=== PATIENT | female | born 1965 | race Hispanic/Latino ===

== ENCOUNTER → 2024-04-08 11:38 | Outpatient (REF) | payer OTHER, SELFPAY | LOC: RAD 11:38 | PROVIDERS: ATTENDING PHYSICIAN Surgery; FAMILY PHYSICIAN Family Medicine | DX: C18.7 Malignant neoplasm of sigmoid colon (principal) | CPT/HCPCS: 71260; 74177; Q9967 ==

== ENCOUNTER → 2024-04-10 15:57 | Outpatient (REF) | payer SELFPAY | LOC: CLAB 15:57 | PROVIDERS: ATTENDING PHYSICIAN Surgery; FAMILY PHYSICIAN Family Medicine | DX: C18.7 Malignant neoplasm of sigmoid colon (principal) | CPT/HCPCS: 88305 ==

== ENCOUNTER 2024-04-14 06:03 | Inpatient (IN) | payer OTHER, SELFPAY ==
[2024-04-08 09:35] VITALS: BMI 23.7
[2024-04-08 10:47] LABS: Hematocrit 34.6 % (37.0-47.0); Hemoglobin 11.1 g/dL (12.0-16.0); Mean Corp Hgb Conc. 32.1 g/dL (33.0-37.0); Mean Corpuscular Hgb 25.3 pg (27.0-31.0); Mean Platelet Volume 10.7 fL (7.4-10.4); Platelet Count 307 10^3/uL (130-400); Red Blood Cell Count 4.38 10^6/uL (4.20-5.40); Red Cell Dist. Width 17.7 % (11.5-14.5); White Blood Cell Count 5.5 10^3/uL (4.8-10.8)
[2024-04-08 10:56] LABS: PT 13.2 Sec (11.4-14.6)
[2024-04-08 10:57] LABS: APTT 32.8 Sec (23.4-35.0)
[2024-04-08 12:35] LABS: ALT (SGPT) 19 U/L (0-35); AST (SGOT) 25 U/L (14-36); Albumin 4.3 g/dl (3.5-5.0); Alkaline Phosphatase 77 U/L (38-126); Blood Urea Nitrogen 6 mg/dl (7-17); Calcium 9.6 mg/dl (8.4-10.2); Carbon Dioxide 24 mmol/L (22-30); Chloride 101 mmol/L (98-107); Estimated Creatinine Clearance 89 ml/min; Glucose 83 mg/dl (70-99); Glycohemoglobin (HgbA1c) 5.2 % (4.0-5.6); Potassium 4.2 mmol/L (3.5-5.1); Sodium 140 mmol/L (135-145); Total Bilirubin 0.2 mg/dl (0.2-1.3); Total Protein 6.8 g/dl (6.3-8.2); eGFR > 60.00
[2024-04-08 13:00] LABS: CEA 3.67 ng/ml
[2024-04-14] VITALS (24 sets, daily range): BP systolic 81–134; BP diastolic 45–79; BMI 23.7
[2024-04-14] MEDS: ENTEREG 12 MG PO (06:31)
[2024-04-14] MEDS: HEPARIN 5000 UNITS SC (06:31)
[2024-04-14] MEDS: TYLENOL 1000 MG PO (06:31)
[2024-04-14] MEDS: NORMOSOL-R/PLASMALYTE-A 1000 IV ×2 (06:33→14:55)
--- NOTE | 2024-04-14 11:35 | W.OR.COLCA ---
Addendum entered and electronically signed by Jose Luis Chery MD 04/14/24 11:47:
Isabela Friedman PA-C, assisted in the anastomosis.
Original Note:
Colon Cancer Post Op Note
Immediate Post Op
Primary Surgeon: Chad Chery MD
Assistants: SKIP Wylie & ESME Spaulding
Pre-op Diagnosis: Sigmoid colon cancer
Post-op Diagnosis: Same
Procedure Performed: Robotic sigmoid colon resection with intracorporeal anastomosis
Anesthesia Type: GET
Specimen / Cultures: Sigmoid colon (suture is proximal)
Estimated Blood Loss: 20cc
Complications: None
Operative Findings: No evidence of metastatic disease
Bulky tumor in the sigmoid colon (ink above and below)
28mm EEA
Normal leak test
Patient's updated
Colon Resection
Colon Resection
Operation performed with curative intent: Yes
Tumor Location: Sigmoid Colon
Sigmoid Resection: Inferior Mesenteric
[2024-04-14] MEDS: TORADOL 15 MG IV ×2 (11:57→17:21)
[2024-04-14] MEDS: TYLENOL 650 MG PO ×2 (12:47→20:53)
[2024-04-14] MEDS: NSS 250 IV (14:00)
--- NOTE | 2024-04-14 14:55 | PTCARENOTE ---
Patient arrived from PACU s/p sigmoid colon resection. 5 Lap Sites STEWARD/STEWARDESS DINING ROOM, surgical adhesive CDI. Small/minimal bruising, no drainage, no erythema.
Patient pleasant, cooperative. R Hand IV hooked up to Normosol at 100 mL/hour by REFRIGERATOR GLAZIER.
[2024-04-14] MEDS: TYLENOL PO (16:20)
[2024-04-15] MEDS: TORADOL 15 MG IV ×4 (00:17→17:10)
[2024-04-15] MEDS: TYLENOL 650 MG PO ×5 (00:17→23:34)
[2024-04-15] MEDS: FLUSH (NSS) 2 FLUSH IV ×2 (00:19→06:13)
[2024-04-15] MEDS: NORMOSOL-R/PLASMALYTE-A 1000 IV ×3 (00:56→17:11)
[2024-04-15 03:21] VITALS: BP 99/58
[2024-04-15] MEDS: TYLENOL PO ×2 (05:00→16:55)
[2024-04-15 06:00] VITALS: BMI 24.6
[2024-04-15 06:26] LABS: % Basophils 0.1 % (0-2); % Immature Granulocytes 0.5 % (0-0.5); % Lymphocytes 11.9 % (20.5-51.1); % Monocytes 6.5 % (1.7-9.3); Absolute Immature Granulocytes 0.1 10^3/uL (0-0.05); Absolute Lymphocytes 1.3 10^3/uL (1.2-3.4); Absolute Monocytes 0.7 10^3/uL (0.1-0.6); Absolute Neutrophils 8.8 10^3/uL (1.4-6.5); Hematocrit 28.6 % (37.0-47.0); Hemoglobin 9.2 g/dL (12.0-16.0); Mean Corp Hgb Conc. 32.2 g/dL (33.0-37.0); Mean Corpuscular Hgb 25.7 pg (27.0-31.0); Mean Corpuscular Volume 79.9 fL (81.0-99.0); Mean Platelet Volume 11.1 fL (7.4-10.4); Nucleated Red Blood Cells % 0 %; Platelet Count 265 10^3/uL (130-400); Red Blood Cell Count 3.58 10^6/uL (4.20-5.40); Red Cell Dist. Width 17.8 % (11.5-14.5); White Blood Cell Count 10.8 10^3/uL (4.8-10.8)
[2024-04-15 06:49] LABS: Blood Urea Nitrogen 3 mg/dl (7-17); Calcium 8.7 mg/dl (8.4-10.2); Carbon Dioxide 21 mmol/L (22-30); Chloride 104 mmol/L (98-107); Estimated Creatinine Clearance 89 ml/min; Glucose 98 mg/dl (70-99); Potassium 4.1 mmol/L (3.5-5.1); Sodium 138 mmol/L (135-145); eGFR > 60.00
[2024-04-15 07:55] VITALS: BP 102/55
[2024-04-15] MEDS: ENTEREG 12 MG PO ×2 (08:14→20:40)
--- NOTE | 2024-04-15 09:37 | W.PN.CRS1 ---
Today's Communication / Plan
-
fulls
d/c charles
lovenox
Assessment/Plan
-
POD#1 robotic sigmoidectomy for colon cancer
-Vitals normal. Hemoglobin 9.5 from 11.1. Likely due to delusional anemia. Trend.
-Out of bed as tolerated
-Advance diet to full's. If has bowel function can go to low residue.
-Lovenox for DVT prophylaxis. Teds and SCDs in place.
-DC Charles
-Discontinue IV fluids when tolerating fulls.
-OR pathology pending
-Pain control: Tylenol and Toradol standing, Dilaudid as needed
Subjective Data
Procedure
04/14 - Robotic sigmoid colon resection with intracorporeal anastomosis
Subjective Data
Date of Service: April 15, 2024
Patient states she feels well. She virtually has no pain. She has not had any bowel function yet. She denies nausea or vomiting.
Objective Data
-
Vital Signs
Temp Pulse Resp BP Pulse Ox
98.5 F 56 16 102/55 100
04/15/24 07:55 04/15/24 07:55 04/15/24 07:55 04/15/24 07:55 04/15/24 07:55
Intake & Output
04/14/24 04/15/24 04/16/24
06:59 06:59 06:59
Intake Total 2690 / 2690
Output Total 1999
Balance 690 / 690
Intake:
Oral fluids 240 / 240
IV fluids (Total) 2450 / 2450
NSS 1250 / 1250
Output:
Urine, Charles 1999
Lab Results
04/15/24 05:02
04/15/24 05:02
Physical Exam
-
General: No Acute Distress and AOx3
Abdomen: Soft, Non Distended and Tender (mild around umbilicus)
Skin: Warm and Dry
Incision: Clear, Dry, Intact
--- NOTE | 2024-04-15 11:02 | CM ---
Met with pt and her at bedside
Pt reports she lives in a 2 story town home with her , 2 sons and her mother; no steps to enter, 13 steps to 2nd fl
Independent, employed FT, drives
DME - none
SNF/HH - no past hx
Has ride at discharge
PCP - Janice Sanders
Pharm - [facility]
Plan - anticipate home no needs when medically ready
[2024-04-15 11:10] VITALS: BP 112/59
[2024-04-15 15:05] VITALS: BP 130/69
[2024-04-15] MEDS: LOVENOX 40 MG SC (17:11)
[2024-04-15] MEDS: TORADOL IV ×2 (23:34→23:40)
[2024-04-15 23:40] VITALS: BP 98/56
[2024-04-16] MEDS: TYLENOL 650 MG PO ×4 (03:04→20:32)
[2024-04-16 05:14] VITALS: BMI 24.4
[2024-04-16 05:53] LABS: % Basophils 0.4 % (0-2); % Eosinophils 0.1 % (0-6); % Immature Granulocytes 0.3 % (0-0.5); % Lymphocytes 22.6 % (20.5-51.1); % Monocytes 6.6 % (1.7-9.3); Absolute Lymphocytes 2.1 10^3/uL (1.2-3.4); Absolute Monocytes 0.6 10^3/uL (0.1-0.6); Absolute Neutrophils 6.5 10^3/uL (1.4-6.5); Hematocrit 28.6 % (37.0-47.0); Hemoglobin 9.3 g/dL (12.0-16.0); Mean Corp Hgb Conc. 32.5 g/dL (33.0-37.0); Mean Corpuscular Hgb 26.4 pg (27.0-31.0); Mean Corpuscular Volume 81.3 fL (81.0-99.0); Nucleated Red Blood Cells % 0 %; Platelet Count 251 10^3/uL (130-400); Red Blood Cell Count 3.52 10^6/uL (4.20-5.40); Red Cell Dist. Width 18.2 % (11.5-14.5); White Blood Cell Count 9.4 10^3/uL (4.8-10.8)
[2024-04-16 06:33] LABS: Blood Urea Nitrogen 4 mg/dl (7-17); Calcium 8.5 mg/dl (8.4-10.2); Carbon Dioxide 25 mmol/L (22-30); Chloride 106 mmol/L (98-107); Estimated Creatinine Clearance 89 ml/min; Glucose 92 mg/dl (70-99); Potassium 3.5 mmol/L (3.5-5.1); Sodium 140 mmol/L (135-145); eGFR > 60.00
[2024-04-16] MEDS: TORADOL IV ×2 (07:15→23:43)
[2024-04-16 07:58] VITALS: BP 110/64
[2024-04-16] MEDS: ZOFRAN 4 MG IV ×2 (08:56→16:10)
[2024-04-16] MEDS: ENTEREG 12 MG PO ×2 (08:57→20:32)
--- NOTE | 2024-04-16 10:56 | W.PN.CRS1 ---
Today's Communication / Plan
-
back down to clears
ivfs
Assessment/Plan
-
POD#2 robotic sigmoidectomy for colon cancer
-Vitals normal. Hemoglobin 9.3 from 9.5. Likely due to dilutional anemia. Trend.
-Out of bed as tolerated
-Back diet down to clears. Add IVFs.
-Lovenox for DVT prophylaxis. Teds and SCDs in place.
-OR pathology pending
-Pain control: Tylenol and Toradol standing, Dilaudid as needed
-Monitor rectal bleeding. Expected post op.
Subjective Data
Procedure
04/14 - Robotic sigmoid colon resection with intracorporeal anastomosis
Subjective Data
Date of Service: April 16, 2024
Patient states she had some nausea today. She denies vomiting. She had some liquid diarrhea with blood in her stool 3 times overnight. She feels little bloated and has some abdominal pain. Nausea is mostly from eating. She was urinating without
difficulty.
Objective Data
-
Vital Signs
Temp Pulse Resp BP Pulse Ox
98.8 F 62 18 110/64 99
04/16/24 07:58 04/16/24 07:58 04/16/24 07:58 04/16/24 07:58 04/16/24 07:58
Intake & Output
04/15/24 04/16/24 04/17/24
06:59 06:59 06:59
Intake Total 2690 / 2690 1480 / 1480
Output Total 1999 1100 / 1100
Balance 690 / 690 380 / 380
Intake:
Oral fluids 240 / 240 680 / 680
IV fluids (Total) 2450 / 2450 800 / 800
NSS 1250 / 1250
Output:
Urine, Johnson 1999 1100 / 1100
Other:
Number of approximated MODERATE 2
amounts of urine
Lab Results
04/16/24 04:43
04/16/24 04:43
Physical Exam
-
General: No Acute Distress and AOx3
Abdomen: Soft, Distended (slightly) and Tender (mild around incisions)
Incision: Clear, Dry, Intact
--- NOTE | 2024-04-16 11:22 | CM ---
Case management following for discharge planning
Chart reviewed
Clear liquids
IV fluids added
Pain management
CM will cont to follow for d/c needs
Plan - anticipate home no needs when medically ready
[2024-04-16] MEDS: NORMOSOL-R/PLASMALYTE-A 1000 IV ×2 (11:46→21:34)
[2024-04-16] MEDS: TORADOL 15 MG IV ×2 (12:22→17:18)
[2024-04-16 15:19] VITALS: BP 112/66
[2024-04-16] MEDS: TYLENOL PO ×2 (16:11→23:43)
[2024-04-16] MEDS: LOVENOX 40 MG SC (17:18)
[2024-04-16] MEDS: COMPAZINE 10 MG IV (20:33)
[2024-04-16 23:00] VITALS: BP 134/74
[2024-04-17] MEDS: TYLENOL PO (04:17)
[2024-04-17] MEDS: TORADOL 15 MG IV ×2 (04:43→12:20)
[2024-04-17 06:05] LABS: % Basophils 0.7 % (0-2); % Eosinophils 0.8 % (0-6); % Immature Granulocytes 0.3 % (0-0.5); % Lymphocytes 26.7 % (20.5-51.1); % Monocytes 7.2 % (1.7-9.3); % Neutrophils 64.3 % (42.2-75.2); Absolute Basophils 0.1 10^3/uL (0-0.2); Absolute Eosinophils 0.1 10^3/uL (0-0.7); Absolute Lymphocytes 1.9 10^3/uL (1.2-3.4); Absolute Monocytes 0.5 10^3/uL (0.1-0.6); Absolute Neutrophils 4.6 10^3/uL (1.4-6.5); Hematocrit 29.2 % (37.0-47.0); Hemoglobin 9.6 g/dL (12.0-16.0); Mean Corp Hgb Conc. 32.9 g/dL (33.0-37.0); Mean Corpuscular Hgb 27.1 pg (27.0-31.0); Mean Corpuscular Volume 82.5 fL (81.0-99.0); Nucleated Red Blood Cells % 0 %; Platelet Count 253 10^3/uL (130-400); Red Blood Cell Count 3.54 10^6/uL (4.20-5.40); White Blood Cell Count 7.2 10^3/uL (4.8-10.8)
[2024-04-17 06:40] LABS: Blood Urea Nitrogen 5 mg/dl (7-17); Calcium 8.7 mg/dl (8.4-10.2); Carbon Dioxide 19 mmol/L (22-30); Chloride 105 mmol/L (98-107); Estimated Creatinine Clearance 89 ml/min; Glucose 69 mg/dl (70-99); Potassium 3.7 mmol/L (3.5-5.1); Sodium 141 mmol/L (135-145); eGFR > 60.00
[2024-04-17] MEDS: NORMOSOL-R/PLASMALYTE-A 1000 IV (07:03)
[2024-04-17 07:05] VITALS: BP 118/78
[2024-04-17] MEDS: ENTEREG 12 MG PO (08:41)
[2024-04-17] MEDS: TYLENOL 650 MG PO ×3 (08:41→16:09)
--- NOTE | 2024-04-17 10:46 | W.PN.CRS1 ---
Today's Communication / Plan
-
low residue
possible d/c later today
Assessment/Plan
-
POD#3 robotic sigmoidectomy for colon cancer
-Vitals normal.
-Out of bed as tolerated
-Restart low residue diet.
-D/C IVFs when tolerating low residue.
-Lovenox for DVT prophylaxis. Teds and SCDs in place.
-OR pathology pending
-Pain control: Tylenol and Toradol standing, Dilaudid as needed
-Okay for d/c later today if tolerates a low residue diet.
Subjective Data
Procedure
04/14 - Robotic sigmoid colon resection with intracorporeal anastomosis
Subjective Data
Date of Service: April 17, 2024
Patient states she is feeling much better. She was nauseous yesterday but improved. She has bowel function. She denies vomiting.
Objective Data
-
Vital Signs
Temp Pulse Resp BP Pulse Ox
98.2 F 76 16 118/78 98
04/17/24 07:05 04/17/24 07:05 04/17/24 07:05 04/17/24 07:05 04/17/24 07:05
Intake & Output
04/16/24 04/17/24 04/18/24
06:59 06:59 06:59
Intake Total 1480 / 1480 2380 / 2380
Output Total 1100 / 1100
Balance 380 / 380 2380 / 2380
Intake:
Oral fluids 680 / 680 480 / 480
IV fluids (Total) 800 / 800 1900 / 1900
Output:
Urine, Johnson 1100 / 1100
Other:
Number of approximated MODERATE 2 3
amounts of urine
Lab Results
04/17/24 04:37
04/17/24 04:37
Physical Exam
-
General: No Acute Distress and AOx3
Abdomen: Soft, Non Distended and Non Tender
Skin: Warm and Dry
--- NOTE | 2024-04-17 13:50 | W.DS.TRANS ---
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
-
Discharge Instructions:
Sleep Apnea Risk Low
Discharge Diagnosis/Procedures Robotic sigmoid colon resection with
intracorporeal anastomosis
Diet Low Residue
Activity No strenuous activity
Additional Activity No lifting over 10lbs (gallon of milk)
Driving Restrictions No driving for 1 week
Bathing Restrictions OK to Shower
Wound Care Allow glue to naturally fall off, do not pick at
incision.
Instructions: Low Fiber Diet
Stand-Alone Forms:
Changes to Home Medications: Yes
Discharge Medications:
DC Medications w/original date entered in [employer]
ascorbic acid (vitamin C) 1,000 mg tablet (Vitamin C) 1,000 mg PO DAILY Supplement 04/09/24
cholecalciferol (vitamin D3) 50 mcg (2,000 unit) capsule (Vitamin D3) 50 mcg PO DAILY Supplement 04/09/24
oxycodone 5 mg tablet 5 mg PO Q6H PRN Pain #20 tabs 04/17/24
Home Medication Changes
oxycodone 5 mg tablet 5 mg PO Q6H PRN Pain #20 tabs 04/17/24
Pending Results: Yes
Additional Pending Results:
pathology
--- NOTE | 2024-04-17 14:39 | CM ---
Pt for possible discharge today if tolerating diet
will transport home
Plan - anticipate home no needs
[2024-04-17 15:33] VITALS: BP 113/73
[2024-04-17] MEDS: AFLURIA (36 mos+) 2024-2025 FORMULA 0.5 ML IM (16:08)
== END 2024-04-17 17:05 | disposition home or self-care (01) | DRG 330 ==
LOC: 2 SOUTH 06:03
PROVIDERS: Physician Assistant; ADMITTING PHYSICIAN Surgery; FAMILY PHYSICIAN Family Medicine
PROC: 0DTN8ZZ Resection of Sigmoid Colon, Via Natural or Artificial Opening Endoscopic (ICD-10-PCS; 2024-04-14)
DX: C18.7 Malignant neoplasm of sigmoid colon (principal); D62 Acute posthemorrhagic anemia
CPT/HCPCS: 88309; 36415; 80048; 80053; 82378; 83036; 85025; 85027; 85610; 85730; 86850; 86900; 86901; 93005; J1335

== ENCOUNTER 2024-05-13 06:51 | Day surgery (SDC) | payer OTHER, SELFPAY ==
[2024-05-13 11:03] VITALS: BMI 23.4
[2024-05-13 11:04] VITALS: BP 112/69
[2024-05-13] MEDS: TYLENOL 1000 MG PO (11:17)
[2024-05-13 13:05] VITALS: BP 116/57
[2024-05-13 13:20] VITALS: BP 123/65
[2024-05-13 13:45] VITALS: BP 121/64
== END 2024-05-13 14:00 | disposition home or self-care (01) ==
LOC: SDS 06:51
PROVIDERS: ATTENDING PHYSICIAN Surgery
DX: C18.7 Malignant neoplasm of sigmoid colon (principal)
CPT/HCPCS: 36561; 71045; 76000; C1788

== ENCOUNTER → 2024-07-02 13:36 | Outpatient (REF) | payer OTHER, SELFPAY | LOC: RADI 13:36 | PROVIDERS: ATTENDING PHYSICIAN Internal Medicine Hematology & Oncology; FAMILY PHYSICIAN Family Medicine | DX: T82.524A Displacement of infusion catheter, initial encounter (principal); Y82.8 Other medical devices associated with adverse incidents; C18.7 Malignant neoplasm of sigmoid colon | CPT/HCPCS: 36598 ==

== ENCOUNTER → 2024-07-06 14:07 | Outpatient (REF) | payer OTHER, SELFPAY ==
[2024-07-06 15:09] LABS: Hematocrit 36.3 % (37.0-47.0); Mean Corp Hgb Conc. 33.1 g/dL (33.0-37.0); Mean Corpuscular Hgb 29.5 pg (27.0-31.0); Mean Corpuscular Volume 89.2 fL (81.0-99.0); Platelet Count 157 10^3/uL (130-400); Red Blood Cell Count 4.07 10^6/uL (4.20-5.40); Red Cell Dist. Width 21.3 % (11.5-14.5); White Blood Cell Count 4.3 10^3/uL (4.8-10.8)
[2024-07-06 15:16] LABS: ALT (SGPT) 58 U/L (0-35); AST (SGOT) 54 U/L (14-36); Albumin 4.2 g/dl (3.5-5.0); Alkaline Phosphatase 98 U/L (38-126); Blood Urea Nitrogen 17 mg/dl (7-17); Calcium 9.2 mg/dl (8.4-10.2); Carbon Dioxide 27 mmol/L (22-30); Chloride 102 mmol/L (98-107); Glucose 84 mg/dl (70-99); Sodium 138 mmol/L (135-145); Total Bilirubin 0.3 mg/dl (0.2-1.3); Total Protein 6.5 g/dl (6.3-8.2); eGFR > 60.00
[2024-07-06 15:19] LABS: Potassium 4.1 mmol/L (3.5-5.1)
[2024-07-06 16:33] LABS: % Basophils 1.2 % (0-2); % Eosinophils 1.2 % (0-6); % Lymphocytes 58.6 % (20.5-51.1); % Monocytes 14.8 % (1.7-9.3); % Neutrophils 24.2 % (42.2-75.2); Absolute Basophils 0.1 10^3/uL (0-0.2); Absolute Eosinophils 0.1 10^3/uL (0-0.7); Absolute Lymphocytes 2.5 10^3/uL (1.2-3.4); Absolute Monocytes 0.6 10^3/uL (0.1-0.6); Nucleated Red Blood Cells % 0 %
== END ==
LOC: REG 14:07
PROVIDERS: ATTENDING PHYSICIAN Internal Medicine Hematology & Oncology
DX: C18.7 Malignant neoplasm of sigmoid colon (principal); D50.9 Iron deficiency anemia, unspecified
CPT/HCPCS: 36415; 80053; 85025

== ENCOUNTER → 2024-07-25 11:22 | Outpatient (REF) | payer OTHER, SELFPAY ==
[2024-07-25 13:26] LABS: % Basophils 0.8 % (0-2); % Eosinophils 0.5 % (0-6); % Lymphocytes 38.6 % (20.5-51.1); % Monocytes 8.3 % (1.7-9.3); % Neutrophils 50.8 % (42.2-75.2); Absolute Basophils 0.1 10^3/uL (0-0.2); Absolute Immature Granulocytes 0.1 10^3/uL (0-0.05); Absolute Lymphocytes 3.4 10^3/uL (1.2-3.4); Absolute Monocytes 0.7 10^3/uL (0.1-0.6); Absolute Neutrophils 4.4 10^3/uL (1.4-6.5); Hematocrit 39.4 % (37.0-47.0); Mean Corpuscular Hgb 30.7 pg (27.0-31.0); Mean Corpuscular Volume 92.9 fL (81.0-99.0); Mean Platelet Volume 10.9 fL (7.4-10.4); Nucleated Red Blood Cells % 0 %; Platelet Count 212 10^3/uL (130-400); Red Blood Cell Count 4.24 10^6/uL (4.20-5.40); Red Cell Dist. Width 21.1 % (11.5-14.5); White Blood Cell Count 8.7 10^3/uL (4.8-10.8)
[2024-07-25 14:06] LABS: ALT (SGPT) 80 U/L (0-35); AST (SGOT) 60 U/L (14-36); Albumin 4.3 g/dl (3.5-5.0); Alkaline Phosphatase 122 U/L (38-126); Blood Urea Nitrogen 19 mg/dl (7-17); Calcium 9.3 mg/dl (8.4-10.2); Carbon Dioxide 30 mmol/L (22-30); Chloride 100 mmol/L (98-107); Glucose 87 mg/dl (70-99); Potassium 3.8 mmol/L (3.5-5.1); Sodium 140 mmol/L (135-145); Total Bilirubin 0.4 mg/dl (0.2-1.3); Total Protein 6.6 g/dl (6.3-8.2); eGFR > 60.00
== END ==
LOC: REG 11:22
PROVIDERS: ATTENDING PHYSICIAN Internal Medicine Hematology & Oncology; FAMILY PHYSICIAN Family Medicine
DX: C18.7 Malignant neoplasm of sigmoid colon (principal); D50.9 Iron deficiency anemia, unspecified
CPT/HCPCS: 36415; 80053; 85025

== ENCOUNTER → 2024-08-10 07:17 | Outpatient (REF) | payer OTHER, SELFPAY ==
[2024-08-10 08:14] LABS: ALT (SGPT) 39 U/L (0-35); AST (SGOT) 40 U/L (14-36); Albumin 4.2 g/dl (3.5-5.0); Alkaline Phosphatase 162 U/L (38-126); Blood Urea Nitrogen 12 mg/dl (7-17); Calcium 9.5 mg/dl (8.4-10.2); Carbon Dioxide 31 mmol/L (22-30); Chloride 102 mmol/L (98-107); Glucose 90 mg/dl (70-99); Potassium 3.6 mmol/L (3.5-5.1); Sodium 140 mmol/L (135-145); Total Bilirubin 0.5 mg/dl (0.2-1.3); Total Protein 6.2 g/dl (6.3-8.2); eGFR > 60.00
[2024-08-10 08:45] LABS: Hematocrit 36.6 % (37.0-47.0); Hemoglobin 12.3 g/dL (12.0-16.0); Mean Corp Hgb Conc. 33.6 g/dL (33.0-37.0); Mean Corpuscular Hgb 31.4 pg (27.0-31.0); Mean Corpuscular Volume 93.4 fL (81.0-99.0); Mean Platelet Volume 10.3 fL (7.4-10.4); Platelet Count 184 10^3/uL (130-400); Red Blood Cell Count 3.92 10^6/uL (4.20-5.40); Red Cell Dist. Width 19.9 % (11.5-14.5); White Blood Cell Count 10.7 10^3/uL (4.8-10.8)
[2024-08-10 15:11] LABS: % Basophils 0.4 % (0-2); % Eosinophils 0.8 % (0-6); % Immature Granulocytes 2.3 % (0-0.5); % Lymphocytes 23.5 % (20.5-51.1); Absolute Eosinophils 0.1 10^3/uL (0-0.7); Absolute Immature Granulocytes 0.3 10^3/uL (0-0.05); Absolute Lymphocytes 2.5 10^3/uL (1.2-3.4); Absolute Monocytes 0.8 10^3/uL (0.1-0.6); Absolute Neutrophils 7.1 10^3/uL (1.4-6.5); Nucleated Red Blood Cells % 0 %
== END ==
LOC: REG 07:17
PROVIDERS: ATTENDING PHYSICIAN Internal Medicine Hematology & Oncology; FAMILY PHYSICIAN Family Medicine
DX: C18.7 Malignant neoplasm of sigmoid colon (principal); D50.9 Iron deficiency anemia, unspecified
CPT/HCPCS: 36415; 80053; 85025

== ENCOUNTER → 2024-08-24 07:40 | Outpatient (REF) | payer OTHER, SELFPAY ==
[2024-08-24 08:46] LABS: % Basophils 0.7 % (0-2); % Eosinophils 0.4 % (0-6); % Lymphocytes 26.3 % (20.5-51.1); % Monocytes 12.8 % (1.7-9.3); % Neutrophils 58.8 % (42.2-75.2); Absolute Basophils 0.1 10^3/uL (0-0.2); Absolute Immature Granulocytes 0.1 10^3/uL (0-0.05); Absolute Lymphocytes 1.8 10^3/uL (1.2-3.4); Absolute Monocytes 0.9 10^3/uL (0.1-0.6); Absolute Neutrophils 4.1 10^3/uL (1.4-6.5); Hematocrit 40.3 % (37.0-47.0); Hemoglobin 13.5 g/dL (12.0-16.0); Mean Corp Hgb Conc. 33.5 g/dL (33.0-37.0); Mean Corpuscular Hgb 32.7 pg (27.0-31.0); Mean Corpuscular Volume 97.6 fL (81.0-99.0); Nucleated Red Blood Cells % 0 %; Red Blood Cell Count 4.13 10^6/uL (4.20-5.40); Red Cell Dist. Width 18.6 % (11.5-14.5)
[2024-08-24 09:14] LABS: Mean Platelet Volume 11.6 fL (7.4-10.4); Platelet Count 99 10^3/uL (130-400)
[2024-08-24 09:15] LABS: ALT (SGPT) 63 U/L (0-35); AST (SGOT) 50 U/L (14-36); Albumin 4.4 g/dl (3.5-5.0); Alkaline Phosphatase 174 U/L (38-126); Blood Urea Nitrogen 17 mg/dl (7-17); Calcium 9.2 mg/dl (8.4-10.2); Carbon Dioxide 30 mmol/L (22-30); Chloride 103 mmol/L (98-107); Glucose 99 mg/dl (70-99); Potassium 3.5 mmol/L (3.5-5.1); Sodium 141 mmol/L (135-145); Total Bilirubin 0.6 mg/dl (0.2-1.3); Total Protein 6.5 g/dl (6.3-8.2); eGFR > 60.00
== END ==
LOC: REG 07:40
PROVIDERS: ATTENDING PHYSICIAN Internal Medicine Hematology & Oncology; FAMILY PHYSICIAN Family Medicine
DX: C18.7 Malignant neoplasm of sigmoid colon (principal); D50.9 Iron deficiency anemia, unspecified
CPT/HCPCS: 36415; 80053; 85025

== ENCOUNTER → 2024-08-31 07:18 | Outpatient (REF) | payer OTHER, SELFPAY ==
[2024-08-31 08:16] LABS: % Basophils 0.8 % (0-2); % Eosinophils 1.5 % (0-6); % Immature Granulocytes 0.9 % (0-0.5); % Lymphocytes 24.4 % (20.5-51.1); % Monocytes 8.1 % (1.7-9.3); % Neutrophils 64.3 % (42.2-75.2); Absolute Basophils 0.1 10^3/uL (0-0.2); Absolute Eosinophils 0.1 10^3/uL (0-0.7); Absolute Immature Granulocytes 0.1 10^3/uL (0-0.05); Absolute Lymphocytes 1.9 10^3/uL (1.2-3.4); Absolute Monocytes 0.6 10^3/uL (0.1-0.6); Hematocrit 37.5 % (37.0-47.0); Hemoglobin 12.9 g/dL (12.0-16.0); Mean Corp Hgb Conc. 34.4 g/dL (33.0-37.0); Mean Corpuscular Hgb 33.1 pg (27.0-31.0); Mean Corpuscular Volume 96.2 fL (81.0-99.0); Mean Platelet Volume 10.1 fL (7.4-10.4); Nucleated Red Blood Cells % 0 %; Platelet Count 168 10^3/uL (130-400); Red Cell Dist. Width 16.8 % (11.5-14.5); White Blood Cell Count 7.8 10^3/uL (4.8-10.8)
[2024-08-31 09:04] LABS: ALT (SGPT) 44 U/L (0-35); AST (SGOT) 34 U/L (14-36); Albumin 3.9 g/dl (3.5-5.0); Alkaline Phosphatase 137 U/L (38-126); Blood Urea Nitrogen 18 mg/dl (7-17); Calcium 9.2 mg/dl (8.4-10.2); Carbon Dioxide 27 mmol/L (22-30); Chloride 106 mmol/L (98-107); Glucose 97 mg/dl (70-99); Potassium 4.2 mmol/L (3.5-5.1); Sodium 141 mmol/L (135-145); Total Bilirubin 0.4 mg/dl (0.2-1.3); Total Protein 6.3 g/dl (6.3-8.2); eGFR > 60.00
== END ==
LOC: REG 07:18
PROVIDERS: ATTENDING PHYSICIAN Internal Medicine Hematology & Oncology; FAMILY PHYSICIAN Family Medicine
DX: C18.7 Malignant neoplasm of sigmoid colon (principal); D50.9 Iron deficiency anemia, unspecified
CPT/HCPCS: 36415; 80053; 85025

== ENCOUNTER → 2024-09-14 07:18 | Outpatient (REF) | payer OTHER, SELFPAY ==
[2024-09-14 07:58] LABS: % Basophils 1.1 % (0-2); % Eosinophils 0.9 % (0-6); % Immature Granulocytes 2.2 % (0-0.5); % Lymphocytes 23.7 % (20.5-51.1); % Monocytes 8.1 % (1.7-9.3); Absolute Basophils 0.1 10^3/uL (0-0.2); Absolute Eosinophils 0.1 10^3/uL (0-0.7); Absolute Immature Granulocytes 0.2 10^3/uL (0-0.05); Absolute Lymphocytes 2.2 10^3/uL (1.2-3.4); Absolute Monocytes 0.8 10^3/uL (0.1-0.6); Hematocrit 36.3 % (37.0-47.0); Hemoglobin 12.3 g/dL (12.0-16.0); Mean Corp Hgb Conc. 33.9 g/dL (33.0-37.0); Mean Corpuscular Hgb 33.1 pg (27.0-31.0); Mean Corpuscular Volume 97.6 fL (81.0-99.0); Mean Platelet Volume 10.3 fL (7.4-10.4); Nucleated Red Blood Cells % 0.2 %; Platelet Count 146 10^3/uL (130-400); Red Blood Cell Count 3.72 10^6/uL (4.20-5.40); Red Cell Dist. Width 14.6 % (11.5-14.5); White Blood Cell Count 9.4 10^3/uL (4.8-10.8)
[2024-09-14 08:48] LABS: ALT (SGPT) 32 U/L (0-35); AST (SGOT) 36 U/L (14-36); Albumin 4.3 g/dl (3.5-5.0); Alkaline Phosphatase 176 U/L (38-126); Blood Urea Nitrogen 12 mg/dl (7-17); Calcium 9.5 mg/dl (8.4-10.2); Carbon Dioxide 25 mmol/L (22-30); Chloride 105 mmol/L (98-107); Glucose 98 mg/dl (70-99); Potassium 3.8 mmol/L (3.5-5.1); Sodium 139 mmol/L (135-145); Total Bilirubin 0.6 mg/dl (0.2-1.3); Total Protein 6.4 g/dl (6.3-8.2); eGFR > 60.00
== END ==
LOC: REG 07:18
PROVIDERS: ATTENDING PHYSICIAN Internal Medicine Hematology & Oncology; FAMILY PHYSICIAN Family Medicine
DX: C18.7 Malignant neoplasm of sigmoid colon (principal); D50.9 Iron deficiency anemia, unspecified
CPT/HCPCS: 36415; 80053; 85025

== ENCOUNTER → 2024-09-28 08:05 | Outpatient (REF) | payer OTHER, SELFPAY ==
[2024-09-28 08:44] LABS: % Basophils 0.9 % (0-2); % Eosinophils 0.8 % (0-6); % Immature Granulocytes 1.3 % (0-0.5); % Lymphocytes 25.1 % (20.5-51.1); % Neutrophils 62.9 % (42.2-75.2); Absolute Basophils 0.1 10^3/uL (0-0.2); Absolute Eosinophils 0.1 10^3/uL (0-0.7); Absolute Immature Granulocytes 0.1 10^3/uL (0-0.05); Absolute Lymphocytes 2.1 10^3/uL (1.2-3.4); Absolute Monocytes 0.8 10^3/uL (0.1-0.6); Absolute Neutrophils 5.3 10^3/uL (1.4-6.5); Hematocrit 37.2 % (37.0-47.0); Hemoglobin 12.4 g/dL (12.0-16.0); Mean Corp Hgb Conc. 33.3 g/dL (33.0-37.0); Mean Corpuscular Hgb 34.3 pg (27.0-31.0); Mean Platelet Volume 10.1 fL (7.4-10.4); Nucleated Red Blood Cells % 0 %; Platelet Count 118 10^3/uL (130-400); Red Blood Cell Count 3.61 10^6/uL (4.20-5.40); Red Cell Dist. Width 14.2 % (11.5-14.5); White Blood Cell Count 8.5 10^3/uL (4.8-10.8)
[2024-09-28 13:15] LABS: ALT (SGPT) 71 U/L (0-35); AST (SGOT) 54 U/L (14-36); Alkaline Phosphatase 177 U/L (38-126); Blood Urea Nitrogen 13 mg/dl (7-17); Calcium 9.5 mg/dl (8.4-10.2); Carbon Dioxide 25 mmol/L (22-30); Chloride 109 mmol/L (98-107); Glucose 95 mg/dl (70-99); Potassium 3.9 mmol/L (3.5-5.1); Sodium 144 mmol/L (135-145); Total Bilirubin 0.4 mg/dl (0.2-1.3); Total Protein 6.2 g/dl (6.3-8.2); eGFR > 60.00
== END ==
LOC: REG 08:05
PROVIDERS: ATTENDING PHYSICIAN Internal Medicine Hematology & Oncology; FAMILY PHYSICIAN Family Medicine
DX: C18.7 Malignant neoplasm of sigmoid colon (principal); D50.9 Iron deficiency anemia, unspecified
CPT/HCPCS: 36415; 80053; 85025

== ENCOUNTER → 2024-10-12 07:39 | Outpatient (REF) | payer OTHER, SELFPAY ==
[2024-10-12 08:26] LABS: % Basophils 1.3 % (0-2); % Eosinophils 0.6 % (0-6); % Immature Granulocytes 0.4 % (0-0.5); % Lymphocytes 32.9 % (20.5-51.1); % Monocytes 11.1 % (1.7-9.3); % Neutrophils 53.7 % (42.2-75.2); Absolute Basophils 0.1 10^3/uL (0-0.2); Absolute Lymphocytes 1.8 10^3/uL (1.2-3.4); Absolute Monocytes 0.6 10^3/uL (0.1-0.6); Absolute Neutrophils 2.9 10^3/uL (1.4-6.5); Hematocrit 38.1 % (37.0-47.0); Hemoglobin 12.8 g/dL (12.0-16.0); Mean Corp Hgb Conc. 33.6 g/dL (33.0-37.0); Mean Corpuscular Volume 101.1 fL (81.0-99.0); Mean Platelet Volume 10.1 fL (7.4-10.4); Nucleated Red Blood Cells % 0 %; Platelet Count 132 10^3/uL (130-400); Red Blood Cell Count 3.77 10^6/uL (4.20-5.40); Red Cell Dist. Width 13.8 % (11.5-14.5); White Blood Cell Count 5.3 10^3/uL (4.8-10.8)
[2024-10-12 09:04] LABS: ALT (SGPT) 72 U/L (0-35); AST (SGOT) 45 U/L (14-36); Albumin 4.1 g/dl (3.5-5.0); Alkaline Phosphatase 168 U/L (38-126); Blood Urea Nitrogen 18 mg/dl (7-17); Calcium 9.7 mg/dl (8.4-10.2); Carbon Dioxide 33 mmol/L (22-30); Chloride 105 mmol/L (98-107); Glucose 99 mg/dl (70-99); Potassium 3.9 mmol/L (3.5-5.1); Sodium 142 mmol/L (135-145); Total Bilirubin 0.4 mg/dl (0.2-1.3); Total Protein 6.4 g/dl (6.3-8.2); eGFR > 60.00
== END ==
LOC: REG 07:39
PROVIDERS: ATTENDING PHYSICIAN Internal Medicine Hematology & Oncology; FAMILY PHYSICIAN Family Medicine
DX: C18.7 Malignant neoplasm of sigmoid colon (principal); D50.9 Iron deficiency anemia, unspecified
CPT/HCPCS: 36415; 80053; 85025

== ENCOUNTER 2024-10-14 13:14 | Emergency (ER) | payer OTHER, SELFPAY ==
[2024-10-14 13:17] VITALS: BP 133/80
[2024-10-14 13:24] VITALS: BP 133/80
--- NOTE | 2024-10-14 13:45 | ED.GENMED ---
History of Present Illness
General
Chief Complaint: Allergic Reaction
Time Seen by Provider: 10/14/24 13:38
History of Present Illness
History of Present Illness:
Patient presents to the emergency department with possible reaction to infusion. She has colorectal cancer and is currently on her 10th round of chemotherapy. She had a similar reaction last session where she developed body shaking and pain in her
back. They thought it may be attributable to cisplatin and this was held from her treatment today. However, she developed a similar reaction while receiving leucovorin. She complained of severe low back pain and generalized shaking. She was
given Ativan, Benadryl, Solu-Medrol and Pepcid. She is currently feeling better but sleepy from the Ativan
Phy Exam
Physical Exam
Physical Exam:
GENERAL APPEARANCE: Sleeping, but easily arousable, pale appearing
EYES lids/conjunctiva normal
EARS/NOSE/THROAT Mucous membranes moist, uvula midline without oral pharyngeal erythema, exudate or swelling
HEAD/NECK normocephalic atraumatic, neck is supple.
RESPIRATORY respiratory effort normal, speaks in full sentences, no accessory muscle use. Lungs clear to auscultation without rhonchi, wheezes, rales
CARDIAC Regular rate and rhythm, no edema.
ABDOMINAL Soft, ND/NT. No pulsatile masses on exam, rebound tenderness, Zaidi sign or pain over Mcburney's point.
MUSCLES/EXTREMITIES No abnormal range of motion, no swelling.
SKIN Warm, pink and dry. No rashes
NEUROLOGICAL Speech is clear and appropriate. Normal level of consciousness. 5/5 strength in all extremities.
PSYCH Normal mood and affect. Judgement/competence is appropriate
Course
Vital Signs
Initial and Last Documented VS:
Initial Vital Signs
Temp Pulse Resp BP Pulse Ox
97.8 F 69 20 133/80 99
10/14/24 13:17 10/14/24 13:17 10/14/24 13:17 10/14/24 13:17 10/14/24 13:17
Last Documented Vital Signs
Temp Pulse Resp BP Pulse Ox
97.8 F 69 20 133/80 99
10/14/24 13:17 10/14/24 13:17 10/14/24 13:17 10/14/24 13:17 10/14/24 13:17
*Critical Care Note
Total Time (30-74mins, 75-104mins- exclusive of procedures): Not Applicable
ED Attending Note
ED Attending Note
ED Attending Note:
Patient with resolving reaction to chemotherapy. She currently is asymptomatic. Will observe in the emergency department to ensure no repeat or recurrence of reaction
patient remained stable without any symptoms in the emergency department. Will discharge with close outpatient follow-up. Return precautions given.
-
Portions of this chart may have been created with voice recognition software.� Occasional wrong word or��sound alike� substitutions may have occurred due to the inherent limitations of voice recognition software.
Discharge Plan
Departure
Patient Disposition: Home (Routine Discharge)
Date of Disposition: 10/14/24
Time of Disposition: 15:17
Patient with high blood pressure during this ER visit?: No
Discharge Problem:
Adverse effect of chemotherapy
Prescriptions:
No Action
ascorbic acid (vitamin C) [Vitamin C] 1,000 mg Tablet
1,000 mg PO DAILY
cholecalciferol (vitamin D3) [Vitamin D3] 50 mcg (2,000 unit) Capsule
50 mcg PO DAILY
magnesium 200 mg Tablet
200 mg PO DAILY
Referrals:
Janice Guaman MD [Family Provider] -
Activity Restrictions/Additional Instructions:
follow up with your doctor in the next few days for recheck
return to ER with new or worsening symptoms
Interventions
Interventions:
*Risk Screen - Suicide Last Done: 10/14/24 13:17
*General Assessment Last Done: 10/14/24 13:17
*Neglect/Abuse Screening Last Done: 10/14/24 13:17
Discharge Date and Time
Print Language: MACEDONIAN
[2024-10-14 14:00] VITALS: BP 107/62
[2024-10-14 15:00] VITALS: BP 98/55
== END 2024-10-14 16:41 | disposition home or self-care (01) ==
LOC: EMR 13:14
PROVIDERS: EMERGENCY PHYSICIAN Emergency Medicine; FAMILY PHYSICIAN Family Medicine
DX: R25.1 Tremor, unspecified (principal); M54.50 Low back pain, unspecified; T45.1X5A Adverse effect of antineoplastic and immunosuppressive drugs, initial encounter; C19 Malignant neoplasm of rectosigmoid junction
CPT/HCPCS: 99282

== ENCOUNTER → 2024-10-28 16:31 | Outpatient (REF) | payer OTHER, SELFPAY | LOC: RAD 16:31 | PROVIDERS: ATTENDING PHYSICIAN Internal Medicine Hematology & Oncology; FAMILY PHYSICIAN Family Medicine | DX: C18.7 Malignant neoplasm of sigmoid colon (principal); D50.9 Iron deficiency anemia, unspecified | CPT/HCPCS: 71260; 74177; Q9967 ==

== ENCOUNTER → 2025-02-02 08:38 | Outpatient (REF) | payer OTHER, SELFPAY ==
[2025-02-02 09:44] LABS: Hematocrit 38.7 % (37.0-47.0); Hemoglobin 13.0 g/dL (12.0-16.0); Mean Corp Hgb Conc. 33.6 g/dL (33.0-37.0); Mean Corpuscular Volume 93.5 fL (81.0-99.0); Nucleated Red Blood Cells % 0 %; Platelet Count 218 10^3/uL (130-400); Red Cell Dist. Width 11.7 % (11.5-14.5)
[2025-02-02 10:09] LABS: ALT (SGPT) 24 U/L (0-35); AST (SGOT) 25 U/L (14-36); Albumin 4.4 g/dl (3.5-5.0); Alkaline Phosphatase 73 U/L (38-126); Total Protein 6.8 g/dl (6.3-8.2)
[2025-02-02 10:38] LABS: CEA 2.03 ng/ml
== END ==
LOC: REG 08:38
PROVIDERS: ATTENDING PHYSICIAN Internal Medicine Hematology & Oncology; FAMILY PHYSICIAN Family Medicine
DX: C18.7 Malignant neoplasm of sigmoid colon (principal); D50.9 Iron deficiency anemia, unspecified
CPT/HCPCS: 36415; 80076; 82378; 85025